=== PATIENT | female | born 1940 | race Caucasian/White ===

== ENCOUNTER 2016-06-09 07:28 | Outpatient (CLI) ==
[2016-02-20 14:44] VITALS: BMI 31.6
== END 2016-06-09 07:29 ==
LOC: AMBL 07:28
PROVIDERS: ATTEND Internal Medicine
DX: M25.562 Pain in left knee (principal); S00.81XA Abrasion of other part of head, initial encounter; R53.1 Weakness; R25.1 Tremor, unspecified; W19.XXXA Unspecified fall, initial encounter

== ENCOUNTER 2016-08-06 02:20 | Outpatient (CLI) ==
[2016-02-20 14:44] VITALS: BMI 31.6
== END 2016-08-06 02:21 | disposition home or self-care (01) ==
LOC: AMBL 02:20
PROVIDERS: ATTEND Internal Medicine Geriatric Medicine
DX: Z04.3 Encounter for examination and observation following other accident (principal); W19.XXXA Unspecified fall, initial encounter

== ENCOUNTER 2016-09-14 20:48 | Outpatient (CLI) | payer OTHER ==
[2016-02-20 14:44] VITALS: BMI 31.6
== END 2016-09-14 20:49 | disposition home or self-care (01) ==
LOC: AMBL 20:48
PROVIDERS: ATTEND Internal Medicine Geriatric Medicine
DX: M19.90 Unspecified osteoarthritis, unspecified site (principal); W06.XXXA Fall from bed, initial encounter; R29.6 Repeated falls

== ENCOUNTER → 2016-10-10 | Outpatient (CLI) | LOC: AMBL 13:32 | PROVIDERS: ATTEND Family Medicine | DX: Z04.3 Encounter for examination and observation following other accident (principal); W19.XXXA Unspecified fall, initial encounter ==

== ENCOUNTER 2016-10-15 14:29 | Emergency (ER) ==
[2016-10-15 14:30] VITALS: BMI 31.6
[2016-10-15 14:36] VITALS: BP 134/66; TEMP 98.9
--- NOTE | 2016-10-15 14:58 | ED.PDOC ---
General ED Provider: Dr. DAVID ALMAGUER JR Chief Complaint: Abdominal Pain Stated Complaint: ABD AND BACK PAIN STARTED AFTER DINNER.[End]10/14 98.9 58 20 96 % 134/66 9/10 ABD PAIN WITH NAUSEA. tums last night with some relief Time Seen by Physician: 14:55 Mode of Arrival: Walk-In Information Source: Patient, Family Exam Limitations: No limitations Primary Care Provider: SELENA CAMPBELL Nursing and Triage Documentation Reviewed and Agree: No Review of Systems - Review Of Systems Constitutional: Reports: Malaise Eyes: Reports: No symptoms Ears, Nose, Mouth, Throat: Reports: No symptoms Respiratory: Reports: No symptoms Cardiac: Reports: No symptoms GI: Reports: Abdominal pain (symptoms after rib sndwich wihtout BBQ sauce, abdomnal pain per daughter patient only notes right flank pain and tenderness) : Reports: No symptoms Musculoskeletal: Reports: Back pain Skin: Reports: No symptoms Neurological: Reports: No symptoms Endocrine: Reports: No symptoms Hematologic/Lymphatic: Reports: No symptoms All Other Systems: Other Past Medical History - Past Medical History Endocrine: Reports: DM 2, Hypothyroid Cardiovascular: Reports: Hypertension Respiratory: Reports: None Hematological: Reports: None Gastrointestinal: Reports: None Genitourinary: Reports: None Neuro/Psych: Reports: CVA (left sided weakness post cva), Seizure, Anxiety, Depression Musculoskeletal: Reports: None Cancer: Reports: None Last Menstrual Period: 1995 - Surgical History General Surgical History: Reports: Hysterectomy, Other (thyroid surgery ) - Family History Family History: Reports: Unknown - Social History Smoking Status: Never smoker Hx Substance Use: No Alcohol Screening: None Physical Exam - Physical Exam Appearance: Well-appearing Pain Distress: Moderate Eyes: TESSIE, EOMI, Conjunctiva clear ENT: Ears normal, Nose normal, Oropharynx normal Neck: Supple Respiratory: Airway patent, Breath sounds clear, Breath sounds equal, Respirations nonlabored Cardiovascular: Pulses normal, No rub, Irregular rhythm, Murmur GI/: Soft, Nontender, No masses, Bowel sounds normal, No Organomegaly Musculoskeletal: Limited ROM (left weakness) Skin: Warm, Dry, Normal color Neurological: Sensation intact, Motor intact, Reflexes intact, Cranial nerves intact, Alert, Oriented Psychiatric: Affect appropriate, Mood appropriate Critical Care Note - Critical Care Note Total Time (mins): 0 Course - Course Hematology/Chemistry: 10/15/16 15:15 10/15/16 15:15 Orders, Labs, Meds: Lab Review 10/15/16 10/15/16 15:15 15:25 WBC 7.63 RBC 5.13 Hgb 14.7 Hct 43.6 MCV 85.0 MCH 28.7 MCHC 33.7 RDW Coeff of Mikel 13.2 Plt Count 213 Immature Gran % (Auto) 0.1 Neut % (Auto) 63.6 Lymph % (Auto) 22.3 [place] % (Auto) 11.1 H Eos % (Auto) 2.2 Baso % (Auto) 0.7 Immature Gran # (Auto) 0.0 Neut # 4.9 Lymph # 1.7 [place] # 0.9 Eos # 0.2 Baso # 0.1 Sodium 140 Potassium 4.3 Chloride 103 Carbon Dioxide 25 Anion Gap 16.3 BUN 20 H Creatinine 0.82 Estimated GFR (MDRD) 68.00 BUN/Creatinine Ratio 24.39 Glucose 108 Calcium 9.4 Total Bilirubin 0.23 AST 26 ALT 39 Alkaline Phosphatase 65 Total Protein 6.8 Albumin 3.5 Globulin 3.3 Albumin/Globulin Ratio 1.06 Amylase 43 Lipase 19 Urine Color Yellow Urine Clarity Clear Urine pH 7.0 Ur Specific [place] 1.015 Urine Protein Negative Urine Glucose (UA) Negative Urine Ketones Negative Urine Blood Trace-intact Urine Nitrite Negative Urine Bilirubin Negative Urine Urobilinogen 0.2 Ur Leukocyte Esterase 1+ Urine Microscopic RBC 0-2 Urine Microscopic WBC 0-2 Ur Squamous Epith Cells 0-2 Ur Renal Epithelial Cell 0-2 Digoxin Pending H. pylori IgG Antibody Negative Orders Category Date Time Status ED IV/MEDIPORT/POWERPORT .ONCE EMERGENCY 10/15/16 14:57 Active AMYLASE Stat LAB 10/15/16 15:15 Results CBC W/ AUTO DIFF Stat LAB 10/15/16 15:15 Completed COMPREHENSIVE METABOLIC PANEL Stat LAB 10/15/16 15:15 Results DIGOXIN Stat LAB 10/15/16 15:15 Results H. PYLORI SCREEN Stat LAB 10/15/16 15:15 Completed LIPASE Stat LAB 10/15/16 15:15 Results PROCALCITONIN Stat LAB 10/15/16 15:15 Received URINALYSIS C & S IF INDICATED Stat LAB 10/15/16 15:25 Completed 0.9 % Sodium Chloride [Saline Flush] MEDS 10/15/16 14:57 Ordered 1 syr IVF PRN PRN Hydrocodone Bit/Acetaminophen [[place] 5-325] MEDS 10/15/16 15:13 Discontinued 1 tab PO ONCE STA CT ABDOMEN/PELVIS WO CONTRAST Stat RADS 10/15/16 14:57 Completed Medications Generic Name Dose Route Start Last Admin Trade Name Mikal PRN Reason Stop Dose Admin Sodium Chloride 1 syr 10/15/16 14:57 Saline Flush IVF PRN PRN To flush IV Discontinued Medications Generic Name Dose Route Start Last Admin Trade Name Frejudy PRN Reason Stop Dose Admin Acetaminophen/Hydrocodone Bitart 1 tab 10/15/16 15:13 10/15/16 15:48 [place] 5-325 PO 10/15/16 15:14 1 tab ONCE STA Administration Vital Signs: Temp Pulse Resp BP Pulse Ox 10/15/16 14:30 98.9 F 58 L 20 134/66 96 Departure - Departure Time of Disposition: 15:49 Disposition: HOME SELF-CARE Discharge Problem: Abdominal pain Instructions: Abdominal Pain (ED) Condition: Good Pt referred to PMD for follow-up: Yes Additional Instructions: Tylenol twice a day for discomfort may repeat up to four times a day total as needed follow up with PMD this week discuss abdominal pain and back pain consider referral for new slight T12 fracture consider further treatment of constipation Miralax 1/2 capful in large glass of juice daily for four days anticipate improvement of pain with relief of constipation no evidence of cholecystitis possible urine infection- recheck culture in two days agree with physical therapy for functional improvement Prescriptions: Acetaminophen [Tylenol] 500 mg PO Q6H PRN #30 tablet PRN Reason: Abdominal Pain Polyethylene Glycol 3350 [Miralax] 9 gm PO DAILY PRN #20 powd.pack PRN Reason: Constipation Allergies/Adverse Reactions: Allergies Iodine and Iodide Containing Produc Adverse Reaction (Verified 02/20/16 14:56) Home Medications: Ambulatory Orders Acetaminophen [Mapap] 325 mg PO Q4HR PRN 03/11/15 Aspirin [Aspirin Chewable] 81 mg PO DAILYWM 03/11/15 Atorvastatin Calcium 40 mg PO BEDTIME 03/11/15 Calcium Carbonate/Vitamin D3 [Calcium 500 + D Tablet] 1 each PO BID 03/11/15 Levetiracetam [Keppra] 1,000 mg PO BID 03/11/15 Lisinopril [Zestril] 2.5 mg PO DAILY 03/11/15 Metoprolol Succinate [Toprol Xl] 25 mg PO DAILY 03/11/15 Omeprazole [Prilosec] 20 mg PO QDAC 03/11/15 Polyethylene Glycol 3350 [Miralax] 17 gm PO DAILY 03/11/15 Potassium Chloride [K-Dur] 20 meq PO BID 03/11/15 Primidone [Mysoline] 50 mg PO TID 03/11/15 Propafenone HCl [Rythmol] 150 mg PO TID 03/11/15 Vit C/Vit E/Lutein/Min/[place]-3 [Ocuvite Softgel] 1 each PO DAILY 03/11/15 Bisacodyl [Dulcolax] 10 mg RC ONCE PRN 02/20/16 Digoxin [Lanoxin] 125 mcg PO DAILY 02/20/16 Estrogens, Conjugated [Premarin Vaginal Cream] 1 applic VG DAILY PRN 02/20/16 Acetaminophen [Tylenol] 500 mg PO Q6H PRN #30 tablet 10/15/16 Polyethylene Glycol 3350 [Miralax] 9 gm PO DAILY PRN #20 powd.pack 10/15/16
[2016-10-15] MEDS ORDERED: NORCO 5-325 PO STA (15:13)
[2016-10-15 15:24] LABS: BASOPHILS # (AUTO) 0.1 K/uL (0-0.2); BASOPHILS % (AUTO) 0.7 % (0.0-3.0); EOSINOPHILS # (AUTO) 0.2 K/ul (0.0-0.7); EOSINOPHILS % (AUTO) 2.2 % (0.0-7.0); HEMATOCRIT 43.6 % (37.0-47.0); HEMOGLOBIN 14.7 g/dl (12.0-16.0); IMMATURE GRANULOCYTE % (AUTO) 0.1 % (0.0-5.0); LYMPHOCYTES # (AUTO) 1.7 K/uL (0.60-3.4); LYMPHOCYTES % (AUTO) 22.3 (10.0-50.0); MEAN CORPUSCULAR HEMOGLOBIN 28.7 pg (27.0-31.0); MEAN CORPUSCULAR HGB CONC 33.7 (31.8-35.4); MONOCYTES # (AUTO) 0.9 K/uL (0.4-2.0); MONOCYTES % (AUTO) 11.1 (0-10); NEUTROPHILS # (AUTO) 4.9 K/ul (2.0-6.9); NEUTROPHILS % (AUTO) 63.6; PLATELET COUNT 213 10^3/uL (140-440); RED BLOOD COUNT 5.13 10^6/ul (4.20-5.40); WHITE BLOOD COUNT 7.63 K/ul (4.6-10.2)
[2016-10-15 15:34] LABS: BILIRUBIN,URINE Negative (NEGATIVE); KETONES,URINE Negative (NEGATIVE); LEUKOCYTE ESTERASE ,URINE 1+ (NEGATIVE); NITRITE,URINE Negative (NEGATIVE); PROTEIN,URINE Negative (NEGATIVE); URINE, BLOOD Trace-intact (NEGATIVE)
--- NOTE | 2016-10-15 15:34 | CT ---
EXAM: CT abdomen and pelvis without contrast. HISTORY: Abdominal pain. TECHNIQUE: Multi-slice transaxial helical CT. Coronal and sagittal reformatons were performed. COMPARISON: CT chest 02/20/2016. CT abdomen 09/09/2007. FINDINGS: Coronary artery calcifications are present. The heart is on the upper limits of normal in size. Mas s-like opacity in the left lung base does not appear significantly changed since 02/20/2016 which ap pears linear and partly pleural-based measuring 4.9 x 1.8 cm. The otherwise the lung bases appear c lear. The old inferior left lower rib fractures are not significantly changed. Evaluation of the solid organs is limited without IV contrast. The spleen is normal in size. The p ancreas appears significantly fatty infiltrated. No intrahepatic biliary ductal dilation is seen. Multiple tiny bilateral nonobstructing renal calculi are present which measure up to 4 mm in the rig ht kidney. Multiple left-sided renal exophytic hypodense lesions are seen which appears slightly la rger than previously seen in 2007. Many of these structures measure a simple water density. Some o f the densities measure higher than simple water. Numerous bilateral other tiny hypodense and hyper dense renal structures are present which are too small to actually characterize. Bilateral adrenal g lands appear unremarkable. The gallbladder appears unremarkable per The bowel is not dilated. The urinary bladder appears unremarkable. The uterus has been removed. P rominent stool is seen throughout the colon. The appendix is normal in size. Calcified plaques are present within the abdominal aorta and its major branch vessels. No evidence of retroperitoneal ad enopathy is seen. Bilateral hip joint space narrowing is present. There is moderate to advanced mu ltilevel degenerative changes of the lumbar spine. Mild anterior compression fracture of T12 is pre sent with cortical irregularity and sclerosis in the superior endplate. IMPRESSION: 1. No acute abdominal findings. 2. Left basilar pleural based mass-like opacity, not significantly changed since 2015. Differentia l includes pleural thickening or round atelectasis. Recommend follow-up CT of the chest in 6 months to exclude enlarging mass. Adjacent left lower posterior rib fractures are present. 3. Atherosclerosis, including coronary disease. 4. Bilateral nonobstructing renal calculi. No evidence of hydronephrosis. 5. Multiple left-sided simple appearing renal cysts. Some of the renal masses measure above 20 HU which are indeterminate. Multiple additional sub-centimeter hypo and hyperdensities are seen in the bilateral kidneys too small to accurately characterize. Recommend non-emergent CT or MRI of the ab domen before and after administration of IV contrast for further evaluation. 6. Prominent stool. Correlate with constipation. 7. Hysterectomy. 8. Mild anterior compression fracture of T12, which appears new since 02/20/2016.
[2016-10-15 15:39] LABS: H. PYLORI ANTIBODY NEGATIVE (NEGATIVE); H.PYLORI INTERNAL QC INTERNAL QC VALID
[2016-10-15 15:39] LABS: ADD URINE MICROSCOPIC YES
[2016-10-15 15:45] LABS: ALANINE AMINOTRANSFERASE 39 U/L (12-78); ALBUMIN 3.5 g/dL (3.4-5.0); ALBUMIN/GLOBULIN RATIO 1.06; ALKALINE PHOSPHATASE 65 U/L (53-141); AMYLASE 43 U/L (25-115); ANION GAP 16.3; ASPARTATE AMINO TRANSFERASE 26 U/L (15-37); BILIRUBIN,TOTAL 0.23 mg/dL (0.00-1.20); BLOOD UREA NITROGEN 20 mg/dL (7-18); BUN/CREATININE RATIO 24.39; CALCIUM 9.4 mg/dL (8.2-10.2); CARBON DIOXIDE 25 mmol/L (23-31); CHLORIDE 103 mmol/L (98-107); CREATININE 0.82 mg/dL (0.60-1.30); GLUCOSE 108 mg/dL (82-115); LIPASE 19 U/L (8-78); POTASSIUM 4.3 mmol/L (3.5-5.10); SODIUM 140 mmol/L (136-145); TOTAL PROTEIN 6.8 g/dL (5.8-8.1)
[2016-10-15 16:04] LABS: DIGOXIN < 0.30 ng/mL (1.00-2.00)
== END 2016-10-15 16:18 | disposition home or self-care (01) ==
LOC: ED 14:29
DX: R10.9 Unspecified abdominal pain (principal); R11.0 Nausea; M54.9 Dorsalgia, unspecified; K59.00 Constipation, unspecified; S22.080A Wedge compression fracture of T11-T12 vertebra, initial encounter for closed fracture; E11.9 Type 2 diabetes mellitus without complications; E03.9 Hypothyroidism, unspecified; I10 Essential (primary) hypertension; Z79.899 Other long term (current) drug therapy; Z86.73 Personal history of transient ischemic attack (TIA), and cerebral infarction without residual deficits
CPT/HCPCS: 36415; 80053; 80162; 81001; 82150; 83690; 84145; 85025; 86677; 87086; 99283

== ENCOUNTER 2016-10-29 13:54 | Emergency (ER) ==
[2016-10-29 14:13] VITALS: BP 169/79; TEMP 98; BMI 29.6
--- NOTE | 2016-10-29 14:32 | ED.PDOC ---
General ED Provider: Dr. DAVID ALMAGUER JR Chief Complaint: Abdominal Pain Stated Complaint: RUQ ABDOMINAL PAIN RADIATING TO BACK, PAIN IS ON THE RIGHT SIDE, FREQ. URINATION BUT IS AFRAID OF VOIDING ON SELF, WHEN WIPE AFTER BOWEL MOVEMENT THE TISSUE WAS RED BUT HAS HEMMORIODS OFF AND ON FOR YEARS AND NOW FOR 2 WEEKS 98.0 58 18 96% 169/79 07/17 [End]. : 10/15/16 :T12 fracture; constipation;Miralax 1/2; no evidence of cholecystitis;possible urine infection; agree with physical therapy (UA showed no growth) Time Seen by Physician: 14:30 Mode of Arrival: Wheelchair Information Source: Patient, Family Exam Limitations: No limitations Primary Care Provider: SELENA CAMPBELL Nursing and Triage Documentation Reviewed and Agree: No Review of Systems - Review Of Systems Constitutional: Reports: Malaise Eyes: Reports: No symptoms Ears, Nose, Mouth, Throat: Reports: No symptoms Respiratory: Reports: No symptoms Cardiac: Reports: No symptoms GI: Reports: Abdominal pain (RUQ), Nausea (briefly at lunchtime), Other (red tissue after BM(hx hemorrhoids)) : Reports: No symptoms Musculoskeletal: Reports: No symptoms Skin: Reports: No symptoms Neurological: Reports: No symptoms Endocrine: Reports: No symptoms Hematologic/Lymphatic: Reports: No symptoms All Other Systems: Other Past Medical History - Past Medical History Endocrine: Reports: DM 2, Hypothyroid Cardiovascular: Reports: Hypertension Respiratory: Reports: None Hematological: Reports: None Gastrointestinal: Reports: None Genitourinary: Reports: None Neuro/Psych: Reports: CVA (left sided weakness post cva), Seizure, Anxiety, Depression Musculoskeletal: Reports: None Cancer: Reports: None Last Menstrual Period: NA - Surgical History General Surgical History: Reports: Hysterectomy, Other (thyroid surgery ) - Family History Family History: Reports: Unknown - Social History Smoking Status: Never smoker Hx Substance Use: No Alcohol Screening: None - Immunizations Tetanus Shot up to Date: No Physical Exam - Physical Exam Appearance: Well-appearing Pain Distress: Moderate Eyes: TESSIE (left lid closed), EOMI, Conjunctiva clear ENT: Ears normal, Nose normal, Oropharynx normal Neck: Supple Respiratory: Airway patent, Breath sounds clear, Breath sounds equal, Respirations nonlabored Cardiovascular: RRR, Pulses normal, No rub, No murmur GI/: Soft, No masses, Bowel sounds normal, No Organomegaly, Tender (RUQ nonfocal tender no mass note told gallbladder testing was normal-sister states she had negative testing on her gall bladder) Musculoskeletal: Limited ROM (left side post CVA) Skin: Warm, Dry, Normal color Neurological: Sensation intact, Motor intact, Reflexes intact, Cranial nerves intact, Alert, Oriented Psychiatric: Affect appropriate, Mood appropriate Critical Care Note - Critical Care Note Total Time (mins): 0 Course - Course Hematology/Chemistry: 10/29/16 14:44 10/29/16 14:44 Orders, Labs, Meds: Lab Review 10/29/16 10/29/16 14:15 14:44 WBC 7.91 RBC 5.12 Hgb 14.7 Hct 43.5 MCV 85.0 MCH 28.7 MCHC 33.8 RDW Coeff of Mikel 13.2 Plt Count 240 Immature Gran % (Auto) 0.3 Neut % (Auto) 64.8 Lymph % (Auto) 22.3 [place] % (Auto) 10.0 Eos % (Auto) 1.8 Baso % (Auto) 0.8 Immature Gran # (Auto) 0.0 Neut # 5.1 Lymph # 1.8 [place] # 0.8 Eos # 0.1 Baso # 0.1 Sodium 140 Potassium 4.3 Chloride 104 Carbon Dioxide 23 Anion Gap 17.3 BUN 17 Creatinine 0.83 Estimated GFR (MDRD) 67.00 BUN/Creatinine Ratio 20.48 Glucose 109 Calcium 9.2 Total Bilirubin 0.27 AST 23 ALT 35 Alkaline Phosphatase 97 Total Protein 6.8 Albumin 3.5 Globulin 3.3 Albumin/Globulin Ratio 1.06 Amylase 43 Lipase 21 Urine Color Yellow Urine Clarity Clear Urine pH 7.0 Ur Specific [place] 1.020 Urine Protein Negative Urine Glucose (UA) Negative Urine Ketones Negative Urine Blood Negative Urine Nitrite Negative Urine Bilirubin Negative Urine Urobilinogen 0.2 Ur Leukocyte Esterase 1+ Ur Squamous Epith Cells 2-5 H. pylori IgG Antibody Negative Orders Category Date Time Status AMYLASE Stat LAB 10/29/16 14:44 Completed CBC W/ AUTO DIFF Stat LAB 10/29/16 14:44 Completed COMPREHENSIVE METABOLIC PANEL Stat LAB 10/29/16 14:44 Completed H. PYLORI SCREEN Stat LAB 10/29/16 14:44 Completed LIPASE Stat LAB 10/29/16 14:44 Completed URINALYSIS C & S IF INDICATED Stat LAB 10/29/16 14:15 Completed Hydrocodone Bit/Acetaminophen [[place] 5-325] MEDS 10/29/16 14:53 Discontinued 1 tab PO ONCE STA Medications Discontinued Medications Generic Name Dose Route Start Last Admin Trade Name Freq PRN Reason Stop Dose Admin Acetaminophen/Hydrocodone Bitart 1 tab 10/29/16 14:53 10/29/16 15:01 [place] 5-325 PO 10/29/16 14:54 1 tab ONCE STA Administration Vital Signs: Temp Pulse Resp BP Pulse Ox 10/29/16 13:55 98 F 58 L 18 169/79 H 96 Departure - Departure Time of Disposition: 15:22 Disposition: HOME SELF-CARE Discharge Problem: Abdominal pain Instructions: Abdominal Pain (ED) Condition: Good Pt referred to PMD for follow-up: Yes Additional Instructions: Follow up with PMD recurrent abdominal pain may have occasional [place] for pain recheck PMD one week check temperature daily return if over 101.0 Prescriptions: Hydrocodone Bit/Acetaminophen [[place] 5-325] 1 - 2 tab PO Q6HR PRN #12 tablet PRN Reason: pain Allergies/Adverse Reactions: Allergies Iodine and Iodide Containing Produc Adverse Reaction (Verified 02/20/16 14:56) Home Medications: Ambulatory Orders Acetaminophen [Mapap] 325 mg PO Q4HR PRN 03/11/15 Aspirin [Aspirin Chewable] 81 mg PO DAILYWM 03/11/15 Atorvastatin Calcium 40 mg PO BEDTIME 03/11/15 Calcium Carbonate/Vitamin D3 [Calcium 500 + D Tablet] 1 each PO BID 03/11/15 Levetiracetam [Keppra] 1,000 mg PO BID 03/11/15 Lisinopril [Zestril] 2.5 mg PO DAILY 03/11/15 Metoprolol Succinate [Toprol Xl] 25 mg PO DAILY 03/11/15 Omeprazole [Prilosec] 20 mg PO QDAC 03/11/15 Polyethylene Glycol 3350 [Miralax] 17 gm PO DAILY 03/11/15 Potassium Chloride [K-Dur] 20 meq PO BID 03/11/15 Primidone [Mysoline] 100 mg PO TID 03/11/15 Propafenone HCl [Rythmol] 150 mg PO TID 03/11/15 Vit C/Vit E/Lutein/Min/[place]-3 [Ocuvite Softgel] 1 each PO DAILY 03/11/15 Digoxin [Lanoxin] 62.5 mcg PO DAILY 02/20/16 Estrogens, Conjugated [Premarin Vaginal Cream] 1 applic VG DAILY PRN 02/20/16 Hydrocodone Bit/Acetaminophen [[place] 5-325] 1 - 2 tab PO Q6HR PRN #12 tablet Multivitamin 1 cap PO DAILY 10/29/16
[2016-10-29] MEDS ORDERED: NORCO 5-325 PO STA (14:53)
[2016-10-29 14:56] LABS: BASOPHILS # (AUTO) 0.1 K/uL (0-0.2); BASOPHILS % (AUTO) 0.8 % (0.0-3.0); EOSINOPHILS # (AUTO) 0.1 K/ul (0.0-0.7); EOSINOPHILS % (AUTO) 1.8 % (0.0-7.0); HEMATOCRIT 43.5 % (37.0-47.0); HEMOGLOBIN 14.7 g/dl (12.0-16.0); IMMATURE GRANULOCYTE % (AUTO) 0.3 % (0.0-5.0); LYMPHOCYTES # (AUTO) 1.8 K/uL (0.60-3.4); LYMPHOCYTES % (AUTO) 22.3 (10.0-50.0); MEAN CORPUSCULAR HEMOGLOBIN 28.7 pg (27.0-31.0); MEAN CORPUSCULAR HGB CONC 33.8 (31.8-35.4); MONOCYTES # (AUTO) 0.8 K/uL (0.4-2.0); NEUTROPHILS # (AUTO) 5.1 K/ul (2.0-6.9); NEUTROPHILS % (AUTO) 64.8; PLATELET COUNT 240 10^3/uL (140-440); RED BLOOD COUNT 5.12 10^6/ul (4.20-5.40); WHITE BLOOD COUNT 7.91 K/ul (4.6-10.2)
[2016-10-29 14:58] LABS: BILIRUBIN,URINE Negative (NEGATIVE); KETONES,URINE Negative (NEGATIVE); LEUKOCYTE ESTERASE ,URINE 1+ (NEGATIVE); NITRITE,URINE Negative (NEGATIVE); PROTEIN,URINE Negative (NEGATIVE); URINE, BLOOD Negative (NEGATIVE)
[2016-10-29 15:02] LABS: ADD URINE MICROSCOPIC YES
[2016-10-29 15:09] LABS: H. PYLORI ANTIBODY NEGATIVE (NEGATIVE); H.PYLORI INTERNAL QC INTERNAL QC VALID
[2016-10-29 15:14] LABS: ALBUMIN 3.5 g/dL (3.4-5.0); ALBUMIN/GLOBULIN RATIO 1.06; ANION GAP 17.3; BILIRUBIN,TOTAL 0.27 mg/dL (0.00-1.20); BUN/CREATININE RATIO 20.48; CALCIUM 9.2 mg/dL (8.2-10.2); CREATININE 0.83 mg/dL (0.60-1.30); POTASSIUM 4.3 mmol/L (3.5-5.10); TOTAL PROTEIN 6.8 g/dL (5.8-8.1)
== END 2016-10-29 15:48 | disposition home or self-care (01) ==
LOC: ED 13:54
DX: R10.11 Right upper quadrant pain (principal); R35.0 Frequency of micturition; E11.9 Type 2 diabetes mellitus without complications; E03.9 Hypothyroidism, unspecified; I10 Essential (primary) hypertension; Z79.899 Other long term (current) drug therapy; Z86.73 Personal history of transient ischemic attack (TIA), and cerebral infarction without residual deficits
CPT/HCPCS: 36415; 80053; 81001; 82150; 83690; 85025; 86677; 99283

== ENCOUNTER 2017-07-11 10:02 | Outpatient (POV) ==
[2016-10-30 09:34] VITALS: BMI 29.6
== END 2017-07-11 17:00 ==
LOC: OUTPT 10:02
PROVIDERS: ATTEND Otolaryngology
DX: H93.13 Tinnitus, bilateral (principal)
CPT/HCPCS: 92557; 92567

== ENCOUNTER 2017-07-27 11:11 | Outpatient (CLI) ==
[2016-10-30 09:34] VITALS: BMI 29.6
--- NOTE | 2017-07-27 13:24 | DI ---
EXAM: Two views of the left knee HISTORY: Left knee pain. COMPARISON: Left knee x-rays 02/20/2016 FINDINGS: Medial and lateral compartments of the left knee are intact with mild medial compartmental narrowing. The patella demonstrates patellar osteophytes. There is no lytic or blastic lesion. The soft tissues are unremarkable. IMPRESSION: Mild degenerative disease of the left knee with no displaced fracture identified.
== END 2017-07-27 11:12 | disposition home or self-care (01) ==
LOC: RAD 11:11
PROVIDERS: ATTEND Family Medicine
DX: M25.562 Pain in left knee (principal); W19.XXXA Unspecified fall, initial encounter

== ENCOUNTER 2017-08-13 06:40 | Inpatient (IN) | payer OTHER ==
[2017-08-13] MEDS ORDERED: LIDOCAINE HCL 1% SDV ONE (06:43)
--- NOTE | 2017-08-13 06:52 | ED.PDOC ---
General Stated Complaint: i fell at [facility] Time Seen by Physician: 06:48 Mode of Arrival: Ambulance Information Source: Patient, EMT Exam Limitations: No limitations Nursing and Triage Documentation Reviewed and Agree: Yes Reviewed sepsis parameters & appropriate labs ordered?: Yes System Inflammatory Response Syndrome: Not Applicable <NESTOR PORTER - Last Filed: 08/13/17 07:04> <CHARISMA GRAFF - Last Filed: 08/13/17 10:01> ED Provider: Dr. CHARISMA GRAFF Chief Complaint: Fall Primary Care Provider: SELENA CAMPBELL Sepsis Protocol: For patient's 13 years and over: Temp is 96.8 and below OR 101 and greater Pulse >90 BPM Resp >20/minute Acutely Altered Mental Status Are patient's symptoms suggestive of a new infection, such as: -Pneumonia -Skin, Soft Tissue -Endocarditis -UTI -Bone, Joint Infection -Implantable Device -Acute Abdominal Infection -Wound Infection -Meningitis -Blood Stream Catheter Infection -Unknown Trauma/Injury Complaint Exam - Head Injury Complaint/Exam Location of Pain: Reports: Scalp Mechanism of Injury: Reports: Trauma Onset/Duration: one hour Symptoms Are: Still present Initial Severity: Mild Current Severity: Mild Character: Reports: Dull Aggravating: Reports: None Alleviating: Reports: None Associated Signs and Symptoms: Denies: Confusion, Memory loss, Seizure, Epistaxis, Dental malocclusion, Neck pain, Nausea, Vomiting Loss of Consciousness: None SDH Risk Factors: Present: Elderly, Recent trauma, Anticoagulant use Cervical Spine Injury Risk Factors: Present: None Immobilization Removed Post Exam: No Head Injury Findings: Present: Normal findings Glascow Coma Scale (see protocol): 15 Focal Weakness: Present: None Focal Sensory Loss: Present: None Gait: Normal Gag Reflex Present: Yes Finger to Nose: Normal Nexus Low Risk Criteria: No Altered LOC, No focal neuro deficit Differential Diagnoses: Trauma <NESTOR PORTER - Last Filed: 08/13/17 07:04> Review of Systems - Review Of Systems Constitutional: Reports: No symptoms Eyes: Reports: No symptoms Ears, Nose, Mouth, Throat: Reports: No symptoms Respiratory: Reports: No symptoms Cardiac: Reports: No symptoms GI: Reports: No symptoms : Reports: No symptoms Musculoskeletal: Reports: No symptoms Skin: Reports: No symptoms Neurological: Reports: Headache Endocrine: Reports: No symptoms Hematologic/Lymphatic: Reports: No symptoms All Other Systems: Reviewed and Negative <NESTOR PORTER Last Filed: 08/13/17 07:04> Past Medical History - Past Medical History Previously Healthy: No Endocrine: Reports: DM 2, Hypothyroid Cardiovascular: Reports: Hypertension Respiratory: Reports: None Hematological: Reports: None Gastrointestinal: Reports: None Genitourinary: Reports: None Neuro/Psych: Reports: CVA, Anxiety, Depression, Seizure Musculoskeletal: Reports: None Cancer: Reports: None - Surgical History General Surgical History: Reports: Hysterectomy, Other (thyroid surgery ) - Family History Family History: Reports: Unknown - Social History Smoking Status: Never smoker Hx Substance Use: No Alcohol Screening: None <NESTOR PORTER Last Filed: 08/13/17 07:04> Physical Exam - Physical Exam Appearance: Well-appearing Eyes: TESSIE ENT: Ears normal, Nose normal, Oropharynx normal Neck: Supple Respiratory: Airway patent, Breath sounds clear, Breath sounds equal, Respirations nonlabored Cardiovascular: RRR, Pulses normal, No rub, No murmur GI/: Soft, Nontender, No masses, Bowel sounds normal, No Organomegaly Musculoskeletal: Normal strength, ROM intact, No edema, No calf tenderness Skin: Warm, Dry, Normal color Neurological: Sensation intact, Motor intact, Reflexes intact, Cranial nerves intact, Alert, Oriented Psychiatric: Affect appropriate, Mood appropriate <NESTOR PORTER Filed: 08/13/17 07:04> Interpretation - Radiology Interpretation Radiology Interpretation By: Radiologist Radiology Results: Negative Exam Interpreted: CT Scan <NESTOR PORTER Last Filed: 08/13/17 07:04> - Radiology Interpretation Radiology Interpretation By: Radiologist Radiology Results: Negative Exam Interpreted: CT Scan - EKG Interpretation Rate: Tachy (ATRIAL FIBRILLATION WITH RVR ) Time of EKG #2: 10:00 Rate: Tachy (AFIB CONTROLLED RATE ) Ectopy: None [place]: NL EKG Comparison: Other (AFIB ON SECOND EKG IS CONTROLLED NO ACUTE CHANGES NOTED) <CHARISMA GRAFF Last Filed: 08/13/17 10:01> Procedures - Laceration/Wound Repair No standard instances Wound Description: Linear Wound Length (cm): 1.5 Wound Explored: Clean Wound Irrigated: No Wound Prep: Hibiclens Wound Repaired With: [place] Number of [place]: 4 Layer Closure?: No Sterile Dressing Applied?: Yes Splint Applied?: No Sling Applied?: No <NESTOR PORTER - Last Filed: 08/13/17 07:04> Re-Evaluation - Re-Evaluation Time of Re-Evaluation: 07:00 Status: Unchanged Vital Signs Stable: Yes Pain Level: 0 Appearance: NAD Lungs: Clear Skin: Warm and Dry CV: Other (afib RVR) - Re-Evaluation Time of Re-Evaluation: 09:59 Status: Improved Vital Signs Stable: Yes Pain Level: 0 Appearance: NAD Skin: Warm and Dry Neuro: Alert and Oriented X3 CV: Other (AFIB RVR) <CHARISMA GRAFF - Last Filed: 08/13/17 10:01> Physician Notification - Case Discussed Physician Notified: dr graff Time of Notification: 07:05 <NESTOR PORTER - Last Filed: 08/13/17 07:04> - Case Discussed Physician Notified: pmd Time of Notification: 09:59 Admit To: Inpatient <CHARISMA GRAFF - Last Filed: 08/13/17 10:01> Critical Care Note - Critical Care Note Total Time (mins): 0 <NESTOR PORTER - Last Filed: 08/13/17 07:04> Course - Course Hematology/Chemistry: 08/13/17 07:10 08/13/17 07:10 <CHARISMA GRAFF - Last Filed: 08/13/17 10:01> - Course Orders, Labs, Meds: Lab Review 08/13/17 08/13/17 08/13/17 07:10 07:10 07:10 WBC 8.99 RBC 5.65 H Hgb 16.2 H Hct 47.8 H MCV 84.6 MCH 28.7 MCHC 33.9 RDW Coeff of Mikel 12.7 Plt Count 238 Immature Gran % (Auto) 0.3 Neut % (Auto) 63.9 Lymph % (Auto) 25.6 [place] % (Auto) 6.7 Eos % (Auto) 2.7 Baso % (Auto) 0.8 Immature Gran # (Auto) 0.0 Neut # (Auto) 5.8 Lymph # (Auto) 2.3 [place] # (Auto) 0.6 Eos # (Auto) 0.2 Baso # (Auto) 0.1 Sodium 140 Potassium 4.2 Chloride 103 Carbon Dioxide 23 Anion Gap 18.2 BUN 17 Creatinine 0.89 Estimated GFR (MDRD) 62.00 BUN/Creatinine Ratio 19.10 Glucose 129 H Calcium 9.7 TSH 1.399 Free T4 1.13 Digoxin < 0.30 L Orders Category Date Time Status EKG-(ED ONLY) Stat CARDIO 08/13/17 07:02 Completed EKG-(ED ONLY) Stat CARDIO 08/13/17 07:20 Completed EKG-(IP & OP ONLY) DAILY CARDIO 08/14/17 06:00 Ordered EKG-(IP & OP ONLY) DAILY CARDIO 08/15/17 06:00 Ordered EKG-(IP & OP ONLY) DAILY CARDIO 08/16/17 06:00 Ordered ACTIVITY .Complete BR CARE 08/13/17 09:56 Ordered BLOOD GLUCOSE MONITORING ACCUCHECK Q6H CARE 08/13/17 09:56 Ordered Neuro Check [NEUROLOGICAL CHECKS] Q4HR CARE 08/13/17 09:58 Ordered VITAL SIGNS Q4HR CARE 08/13/17 09:56 Ordered REGULAR DIET DIETARY 08/13/17 Lunch Ordered Financial Aid Counselor [ED SCREEN ROLLER APPLIED] .ONCE EMERGENCY 08/13/17 07:03 Active IV [ED IV/MEDIPORT/POWERPORT] .ONCE EMERGENCY 08/13/17 07:02 Active BASIC METABOLIC PANEL Stat LAB 08/13/17 07:10 Completed CBC W/ AUTO DIFF DAILY@0600 LAB 08/14/17 06:00 Ordered CBC W/ AUTO DIFF DAILY@0600 LAB 08/15/17 06:00 Ordered CBC W/ AUTO DIFF Stat LAB 08/13/17 07:10 Completed COMPREHENSIVE METABOLIC PANEL DAILY@0600 LAB 08/14/17 06:00 Ordered COMPREHENSIVE METABOLIC PANEL DAILY@0600 LAB 08/15/17 06:00 Ordered CREATINE KINASE Q8H LAB 08/13/17 16:00 Ordered CREATINE KINASE Q8H LAB 08/14/17 00:00 Ordered DIGOXIN Stat LAB 08/13/17 07:10 Completed FREE T4 (FREE THYROXINE) Stat LAB 08/13/17 07:10 Completed TROPONIN I Q8H LAB 08/13/17 16:00 Ordered TROPONIN I Q8H LAB 08/14/17 00:00 Ordered TSH [THYROID STIMULATING HORMONE] Stat LAB 08/13/17 07:10 Completed UA [URINALYSIS C & S IF INDICATED] Stat LAB 08/13/17 07:21 Uncollected 0.9 % Sodium Chloride [Saline Flush] MEDS 08/13/17 07:02 Active 1 syr IVF PRN PRN 0.9 % Sodium Chloride [Sodium Chloride] 100 ml MEDS 08/13/17 07:30 Active Diltiazem HCl Inj [Cardizem Inj] 125 mg IV 5 mg/hr Amiodarone HCl Inj [Cordarone] MEDS 08/13/17 07:13 Discontinued 150 mg .ROUTE .STK-MED ONE Aspirin [Aspirin Chewable] MEDS 08/14/17 08:00 Ordered 81 mg PO DAILYWM Atorvastatin Calcium [Atorvastatin Calcium] MEDS 08/13/17 21:00 Ordered 40 mg PO BEDTIME Calcium Carbonate/Vitamin D3 [Calcium 600 + Vit D 400 MEDS 08/13/17 21:00 Ordered Tablet] 1 each PO BID Digoxin Inj [Lanoxin] MEDS 08/13/17 07:03 Discontinued 250 mcg IVP ONCE STA Digoxin [Lanoxin] MEDS 08/14/17 09:00 Ordered 62.5 mcg PO DAILY Diltiazem HCl Inj [Cardizem Inj] MEDS 08/13/17 07:18 Discontinued 20 mg IVP ONCE STA Diltiazem HCl Inj [Cardizem Inj] MEDS 08/13/17 07:38 Discontinued 25 mg IVP ONCE STA Diltiazem HCl [Cardizem Inj] MEDS 08/13/17 07:17 Discontinued 25 mg .ROUTE .STK-MED ONE Levetiracetam [Levetiracetam] MEDS 08/13/17 21:00 Ordered 1,000 mg PO BID Lidocaine HCl/Pf [Lidocaine HCl 1% Sdv] MEDS 08/13/17 06:43 Discontinued 5 ml .ROUTE .STK-MED ONE Lisinopril [Zestril] MEDS 08/14/17 09:00 Ordered 2.5 mg PO DAILY Magnesium [Magnesium] MEDS 08/14/17 09:00 Ordered 200 mg PO DAILY Metoprolol Succinate [Toprol Xl] MEDS 08/14/17 09:00 Ordered 12.5 mg PO DAILY Omeprazole [Prilosec] MEDS 08/14/17 06:30 Ordered 20 mg PO QDAC Potassium Chloride [K-Dur] MEDS 08/13/17 21:00 Ordered 20 meq PO BID Primidone [Mysoline] MEDS 08/13/17 15:00 Ordered 100 mg PO TID Propafenone HCl [Rythmol Sr] MEDS 08/13/17 15:00 Ordered [address] CERVICAL SPINE W/O CONTRAST Routine RADS 08/13/17 08:[address] HEAD W/O CONTRAST Routine RADS 08/13/17 08:12 Completed Medications Generic Name Dose Route Start Last Admin Trade Name Freq PRN Reason Stop Dose Admin Aspirin 81 mg 08/14/17 08:00 Aspirin Chewable PO DAILYWM FLAQUITA Digoxin 62.5 mcg 08/14/17 09:00 Lanoxin PO DAILY FLAQUITA Diltiazem HCl 125 mg/ Sodium 125 mls @ 5 mls/hr 08/13/17 07:30 Chloride IV .Q24H [facility] Protocol 5 MG/HR Metoprolol Succinate 12.5 mg 08/14/17 09:00 Toprol Xl PO DAILY FLAQUITA Non-Formulary Medication 40 mg 08/13/17 21:00 Atorvastatin Calcium [Atorvastatin Calcium] PO BEDTIME FLAQUITA Non-Formulary Medication 1 each 08/13/17 21:00 Calcium Carbonate/Vitamin D3 [Calcium 600 + Vit D 400 Tablet] PO BID FLAQUITA Non-Formulary Medication 1,000 mg 08/13/17 21:00 Levetiracetam [Levetiracetam] PO BID FLAQUITA Non-Formulary Medication 200 mg 08/14/17 09:00 Magnesium [Magnesium] PO DAILY FLAQUITA Non-Formulary Medication 100 mg 08/13/17 15:00 Primidone [Mysoline] PO TID FLAQUITA Non-Formulary Medication 150 mg 08/13/17 15:00 Propafenone Hcl [Rythmol Sr] PO TID FLAQUITA Non-Formulary Medication 2.5 mg 08/14/17 09:00 Lisinopril [Zestril] PO DAILY [facility] Omeprazole 20 mg 08/14/17 06:30 Prilosec PO QDAC [facility] Potassium Chloride 20 meq 08/13/17 21:00 K-Dur PO BID [facility] Sodium Chloride 1 syr 08/13/17 07:02 08/13/17 07:34 Saline Flush IVF 1 syr PRN PRN Administration To flush IV Discontinued Medications Generic Name Dose Route Start Last Admin Trade Name Freq PRN Reason Stop Dose Admin Digoxin 250 mcg 08/13/17 07:03 08/13/17 07:15 Lanoxin IVP 08/13/17 07:04 250 mcg ONCE STA Administration Diltiazem HCl 20 mg 08/13/17 07:18 08/13/17 07:31 Cardizem Inj IVP 08/13/17 07:19 Not Given ONCE STA Diltiazem HCl 25 mg 08/13/17 07:38 08/13/17 07:39 Cardizem Inj IVP 08/13/17 07:39 Not Given ONCE STA Vital Signs: Temp Pulse Resp BP Pulse Ox 08/13/17 07:15 180 H 08/13/17 07:00 97.1 F L 173 H 28 H 149/117 H 98 Departure - Departure Time of Disposition: 06:52 Pt referred to PMD for follow-up: Yes IPMP verified?: No Disposition Discussed With: Patient <NESTOR PORTER - Last Filed: 08/13/17 07:04> <CHARISMA GRAFF - Last Filed: 08/13/17 10:01> - Departure Disposition: ADMITTED INPATIENT Discharge Problem: Atrial fibrillation with RVR Closed head injury Qualifiers: Encounter type: initial encounter Qualified Code(s): S09.90XA - Unspecified injury of head, initial encounter Instructions: Laceration (ED), Staple Care (ED) Condition: Good Additional Instructions: Please call your Family Physician as soon as possible to schedule a follow-up appointment. Allergies/Adverse Reactions: Allergies Iodine and Iodide Containing Produc Adverse Reaction (Verified 08/13/17 07:08) Home Medications: Ambulatory Orders Acetaminophen [Mapap] 325 mg PO Q4HR PRN 03/11/15 Aspirin [Aspirin Chewable] 81 mg PO DAILYWM 03/11/15 Atorvastatin Calcium 40 mg PO BEDTIME 03/11/15 Lisinopril [Zestril] 2.5 mg PO DAILY 03/11/15 Metoprolol Succinate [Toprol Xl] 12.5 mg PO DAILY 03/11/15 Omeprazole [Prilosec] 20 mg PO QDAC 03/11/15 Polyethylene Glycol 3350 [Miralax] 17 gm PO DAILY 03/11/15 Potassium Chloride [K-Dur] 20 meq PO BID 03/11/15 Primidone [Mysoline] 100 mg PO TID 03/11/15 Levetiracetam 1,000 mg PO BID 04/04/18 Magnesium 200 mg PO DAILY 07/11/17 Propafenone HCl [Rythmol Sr] 150 mg PO TID 07/11/17 Bisacodyl 10 mg RC PRN PRN 08/13/17 Calcium Carbonate/Vitamin D3 [Calcium 600 + Vit D 400 Tablet] 1 each PO BID 10/24 Digoxin [Lanoxin] 0.5 tab PO DAILY 08/13/17 Estrogens, Conjugated [Premarin Vaginal Cream] 1 applic VG PRN PRN 08/13/17 Magnesium Hydroxide [Milk of Magnesia] 30 ml PO PRN PRN 08/13/17 Vit C/Vit E/Lutein/Min/[place]-3 [Ocuvite Softgel] 1 each PO DAILY 08/13/17
[2017-08-13] MEDS ORDERED: LANOXIN IVP STA ×2 (07:03→18:46)
[2017-08-13] MEDS ORDERED: CORDARONE ONE (07:13)
[2017-08-13] MEDS ORDERED: CARDIZEM INJ ONE (07:17)
[2017-08-13] MEDS ORDERED: CARDIZEM INJ IVP STA ×2 (07:18→07:38)
[2017-08-13] MEDS: CARDIZEM INJ 125 MG in SODIUM CHLORIDE 100 ML IV SCH (08:10)
--- NOTE | 2017-08-13 09:09 | CT ---
EXAM: CT head without contrast. HISTORY: Initial presentation for head trauma. COMPARISON: 02/20/2016. TECHNIQUE: Multiple axial images of the brain were obtained from the skull base through the vertex w ithout intravenous contrast. Multiplanar reformats were provided. FINDINGS: There is no intracranial hemorrhage or extraaxial collection. Extensive encephalomalacia throughout the right middle cerebral artery territory again noted with ex vacuo dilatation of the rig ht lateral ventricle. The neely-white differentiation is maintained without evidence for acute large vascular territory infarction. There are areas of periventricular and subcortical white matter low a ttenuation. The cortical sulci and cerebral ventricles are symmetrically enlarged. The basal cister ns are well visualized. There is no hydrocephalus, mass effect, or midline shift. The paranasal sin uses and mastoid air cells are clear. The calvarium is intact. Atherosclerotic calcifications are p resent. There is soft tissue swelling and subcutaneous air in the posterior scalp with to skin stapl es present to the left of midline. IMPRESSION: 1. Posterior scalp injury without acute intracranial abnormality. 2. 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 3. Chronic small vessel ischemic changes and atrophy.
--- NOTE | 2017-08-13 09:14 | CT ---
EXAM: CT cervical spine without contrast. HISTORY: Initial presentation for neck trauma due to a fall. COMPARISON: 02/20/2016. TECHNIQUE: Multiple axial images of the cervical spine were obtained without intravenous contrast. Images were reformatted in the sagittal and coronal planes. FINDINGS: There is normal curvature and alignment. Vertebral body and intervertebral disc heights a re maintained. No fracture or subluxation is seen. There is multilevel endplate osteophyte formatio n and facet arthropathy without significant central canal stenosis. The prevertebral soft tissues ar e unremarkable. Soft tissue swelling and skin kimberly noted in the posterior scalp. Atherosclerotic c alcifications noted. Right lobe of the thyroid is not seen. Possible left thyroid nodule. Lung api rita are clear. IMPRESSION: No acute abnormality of the cervical spine.
[2017-08-13 12:52] VITALS: BMI 28.4
[2017-08-13] MEDS: RYTHMOL PO SCH ×2 (14:36→21:34)
[2017-08-13] MEDS: PRIMIDONE PO SCH ×2 (14:38→21:35)
[2017-08-13] MEDS ORDERED: PROPAFENONE HCL 150 MG PO SCH ×2 (15:00→21:00)
[2017-08-13] MEDS ORDERED: LEVETIRACETAM 1000 MG PO SCH (21:00)
[2017-08-13] MEDS ORDERED: NON-FORMULARY MEDICATION (Atorvastatin Calcium [Atorvastatin Calcium] 40 MG) PO SCH (21:00)
[2017-08-13] MEDS: CALCIUM 500 + VIT D 200 MG TABLET PO SCH (21:34)
[2017-08-13] MEDS: KEPPRA PO SCH (21:34)
[2017-08-13] MEDS: LIPITOR PO SCH (21:35)
[2017-08-13] MEDS: K-DUR PO SCH (21:35)
[2017-08-14] MEDS: RYTHMOL PO SCH ×3 (05:30→21:18)
[2017-08-14] MEDS: PRILOSEC PO SCH (05:30)
[2017-08-14] MEDS ORDERED: CARDIZEM INJ ONE (05:39)
[2017-08-14] MEDS: CARDIZEM INJ 125 MG in SODIUM CHLORIDE 100 ML IV SCH ×2 (05:44→22:54)
[2017-08-14] MEDS ORDERED: NON-FORMULARY MEDICATION (Lisinopril [Zestril] 2.5 MG) PO SCH (09:00)
[2017-08-14] MEDS ORDERED: MAGNESIUM 200 MG PO SCH (09:00)
[2017-08-14] MEDS: ASPIRIN CHEWABLE PO SCH (10:31)
[2017-08-14] MEDS: CALCIUM 500 + VIT D 200 MG TABLET PO SCH ×2 (10:32→21:18)
[2017-08-14] MEDS: K-DUR PO SCH ×2 (10:32→21:18)
[2017-08-14] MEDS: KEPPRA PO SCH ×2 (10:33→21:18)
[2017-08-14] MEDS: LANOXIN PO SCH (10:36)
[2017-08-14] MEDS: MAG-OX PO SCH (10:38)
[2017-08-14] MEDS: PRIMIDONE PO SCH ×3 (10:39→21:18)
[2017-08-14] MEDS: TOPROL XL PO SCH (10:39)
[2017-08-14] MEDS: ZESTRIL PO SCH (10:54)
--- NOTE | 2017-08-14 11:12 | RS.PTINEVL ---
Subjective - Patient information Date of Evaluation: 08/14/17 Date of Arrival on Unit: 08/13/17 Admitted From:: Home ([facility]) Diagnosis: afib with RVR, s/p fall with scalp laceration. Usual Living Arrangement: [facility] Home Environment: Level/No stairs Medical History: Hypertension, CVA/TIA, Diabetes Medical History Comments:: hypothyroid, depression, anxiety, seizure LATEX ALLERGY?: No Surgical History: Hysterectomy Medications: see chart Subjective Information/ Patient Comments:: pt states that she is ready to get up and moving. - Level of function Prior to this admission, the patient could do the following:: Independent Selfcare, Independent ADL's, Independent Ambulation Current Level of Function: Partially Dependent Current Equipment Used at Home: rollator rwx Pain Assessement - Location head Description: Acute Intensity: 2 Pain Alleviating Factors: Medication Effects of Pain: pt c/o soreness at area of laceration Interventions - Objective Patient Orientation: Person, Place, Time Current Interventions: IV's, Telemetry Observation: pt with laceration with kimberly to back of head Range of Motion - ROM Right Upper Extremity AROM: WFL's Left Upper Extremity AROM: Moderate limitation (L shld flex/abd limited due to previous CVA) Right Lower Extremity AROM: WFL's Left Lower Extremity AROM: WFL's Muscle Strength - Muscle Strength Right Upper Extremity Strength: Mild Weakness (shld flex 4-/5, elbow flex/ext 4/ 5) Left Upper Extremity Strength: Severe Weakness (shld flex 3-/5, elbow flex/ext 4 -/5) Right Lower Extremity Strength: Mild Weakness (hip flex 4-/5, knee flex/ext 4/5 , ankle DF/PF 4/5) Left Lower Extremity Strength: Mild Weakness (hip flex 3+/5, knee flex/ext 4-/5 , ankle DF/PF 4-/5) Sensation - Sensation Right Upper Extremity Sensation: Intact/Normal Left Upper Extremity Sensation: Intact/Normal Right Lower Extremity Sensation: Intact/Normal Left Lower Extremity Sensation: Intact/Normal Palpation Palpation Findings: None/Normal Balance - Sitting Balance and Reactions Static Sitting Balance: Fair Dynamic Sitting Balance: Poor Sitting Equilibrium Reactions: Delayed Left, Delayed Right Sitting Protective Reactions: Delayed Left, Delayed Right - Standing Balance and Reactions Static Standing Balance: Poor Dynamic Standing Balance: Poor Standing Equilibrium Reactions: Delayed Left, Delayed Right Standing Protective Reactions: Delayed Left, Delayed Right - Comments Balance Assessment Comments: pt leans to R occasionally loses balance requires min assist to maintain balance. Functional Mobility - Bed Mobility Rolling R/L: Mod Assist Supine to Sit: Mod Assist - Transfers Sit to Stand: Min Assist, 2 person assist Stand to Sit: Min Assist - Safety Awareness Safety Awareness: Fair KELECHI INDEX SCORE: n/a Ambulation - Ambulation Assistive Device Used: Rolling Walker Orthotic/Prosthetic Device: No Distance: 110ft Assistance needed with Ambulation: Min Assist, 2 person assist Gait Deviations: Narrow Based gait, Ataxic gait, Forward posture, Deviates from path Ambulation Comments: pt amb leans to R and veers to R. Factors Affecting Ambulation: Decreased Balance, Weakness, Decreased ROM, Decreased Safety, Limited Endurance Treatment time - Time with patient Total treatment time: 27 Patient Education - Education Patient Education: Activity Modification, Education of Plan of Care Teaching Recipient: Patient Teaching Methods: Discussion (discussion with patient regarding POC as well as case management regarding PT POC) Assessment - Assessment Problem List:: Decreased level of function, Requires training/education, Decreased safety/Risk of falls, Weakness, Pain limits previous level of function Rehab Potential: Good Further Therapy Indicated?: Yes Evaluation Complexity: HISTORY: High (fall, DM, HTN, CVA), EXAM OF BODY SYSTEMS : Medium (strength, posture, balance gait), CLINICAL PRESENTATION: Medium ( evolving), CLINICAL DECISION MAKING: Medium Short Term Goals GOAL #1: pt demonstrate rolling and scooting up in bed independently Goal to be met by: 08/17/17 GOAL #2: pt transfer sup to/from sit to/from stand CGA Goal to be met by: 08/17/17 GOAL #3: pt amb 150ft with rwx with no LOB with CGA x 1 Goal to be met by: 08/17/17 GOAL #4: pt with improved strength LLE 4-/5 to 4/5, RLE 4 to 4+/5 Goal to be met by: 08/17/17 Fashion Design Professor Goals GOAL #1: pt transfer sup to/from sit to/from stand SBA to independently Goal to be met by: 08/20/17 GOAL #2: pt amb 200ft with rwx with SBA x 1 with no LOB Goal to be met by: 08/20/17 GOAL #3: pt with improved dyn stand balance as noted by no LOB with gait Goal to be met by: 08/19/17 Plan Plan of Care: Therapeutic EX, Therapeutic Activity Other:: gait training Frequency of Treatment: 1-2 X day, as tolerated Duration of Treatment: 6 days Anticipated Discharge Destination: Home Treatment Diagnosis (ICD 10 Codes): R26.0 ataxic gait. R26.81 balance impaired. Has the Physician been added for Co-signature?: Yes
[2017-08-14] MEDS: LIPITOR PO SCH (21:18)
[2017-08-15] MEDS: RYTHMOL PO SCH ×3 (05:44→21:16)
[2017-08-15] MEDS: PRILOSEC PO SCH (05:44)
[2017-08-15] MEDS: CALCIUM 500 + VIT D 200 MG TABLET PO SCH ×2 (09:20→21:17)
[2017-08-15] MEDS: ASPIRIN CHEWABLE PO SCH (09:20)
[2017-08-15] MEDS: K-DUR PO SCH ×2 (09:20→21:17)
[2017-08-15] MEDS: TOPROL XL PO SCH (09:20)
[2017-08-15] MEDS: KEPPRA PO SCH ×2 (09:20→21:17)
[2017-08-15] MEDS: ZESTRIL PO SCH (09:21)
[2017-08-15] MEDS: MAG-OX PO SCH (09:22)
[2017-08-15] MEDS: PRIMIDONE PO SCH ×3 (09:22→21:16)
[2017-08-15] MEDS: LANOXIN PO SCH (09:23)
--- NOTE | 2017-08-15 11:06 | PN ---
DATE OF SERVICE: 08/14/17 CHIEF COMPLAINT: She fell, hit her head and was found to have an arrhythmia. BRIEF HISTORY OF PRESENT ILLNESS: She has poor gait with multiple medical problems. She has had a previous stroke with left hemiplegia combined with some degree of degenerative joint disease making her a fall risk. Recently seen in the office. She was actually sent to therapy and was doing better. She got up the morning of admission and went to the kitchen; she had no loss of consciousness but fell striking the back of her head with a laceration that was induced. She was brought to the ER where she required stapling of the laceration. CT of the head showed nothing acute as well as her neck. She was found to be in a rapid ventricular response to probably atrial fibrillation. She has a history of atrial fibrillation and her Dig level was found to be low. She was given a bolus of Dig, placed on Cardizem drip and the bolus of Dig was repeated last night. Her rate has slowly improved. The Cardizem has been weaned. Her Dig level this morning was 2. She has actually had therapy and did some walking today. She has a minor posterior headache. PHYSICAL EXAMINATION: V/S: Temperature 97.8, pulse 57, respirations 20, BP 154/71. GENERAL: No obvious distress. HEENT: Pupils equal. Extraocular movements intact. INTEGUMENT: Intact posterior occipital laceration with kimberly; no significant fluctuance. NECK: Nontender and supple. CHEST: Clear. CARDIOVASCULAR: Grade I/ systolic murmur. Regular and yasemin. No peripheral edema. GI: Obese, nontender without organomegaly. MUSCULOSKELETAL: Right upper extremity tremors, resting and intention. Left weakness, diffuse. LABS/X-RAYS: White count 10.77, hemoglobin 15.5, platelets 231. Chemistry is completely unremarkable. Note blood sugar at 115 and potassium 4.4. REASON FOR ADMISSION: Head contusion Scalp laceration Tachycardia Rapid atrial fibrillation Gait decline, acute and fall acute Chronic illnesses of significance: Chronic gait issues Chronic atrial fibrillation History of CVA with late effects Dig therapy - subtherapeutic PLAN: 1. Another night of observation of the situations and rechecking of her labs in the morning. More therapy tomorrow; trying to decide if she is well enough to consider going home with assisted living or whether she will need [facility]. 2. Will talk to family tomorrow; as they are not here tonight. 3. Laboratories as noted. 4. No further imaging at this point. 5. She remains a DNR. DEYSI
--- NOTE | 2017-08-15 14:35 | RS.OTINEVL ---
Subjective - Patient information Date of Evaluation: 08/15/17 Date of Arrival on Unit: 08/13/17 Admitted From:: Emergency Dept Usual Living Arrangement: Personal Care Facility Living Arrangement Comments: Pt lives at [facility] Home Environment: Apartment Medical History: Hypertension, CVA/TIA Medical History Comments:: Atrial Fib, Thyroidectomy, endocrine, hysterectomy, CVA 2014, Cardiac disorders, Abdominal surgery, depression, OA, Tachycardia LATEX ALLERGY?: No Surgical History Comments:: gall bladder removed, abd. surgery. Subjective Information/ Patient Comments:: "Hold my cup for me. I will spill it everywhere." - Level of function Prior to this admission, the patient could do the following:: Independent Selfcare, Independent ADL's, Independent Ambulation Abilities prior to this admission: Pt living at [facility] and was able to go to the restroom herself. She has paid CG to help her with a bath. Pt requires assist for self feeding if she does not have finger foods. Current Equipment Used at Home: rollator rwx Pain Assessment - Pain Pain Score: 0 Interventions - Objective Patient Orientation: Person, Place, Situation Current Interventions: IV's, Oxygen, Telemetry Observation: Pt's head leans to the right. Pt walks very slow with a rollator walker. Interventions - ROM Right Upper Extremity AROM: WFL's Left Upper Extremity AROM: Moderate limitation - Strength Right Upper Extremity Strength: Normal Left Upper Extremity Strength: Severe Weakness - Sensation Right Upper Extremity Sensation: Intact/Normal Left Upper Extremity Sensation: Impaired Balance - Sitting Balance Dynamic Sitting Balance: Fair - Standing Balance Static Standing Balance: Poor Dynamic Standing Balance: Poor ADL Skills - Self Feeding Self Feeding: Min Assist - Grooming Grooming: Min Assist - Bathing Bathing UE: CGA Bathing LE: Mod Assist - Dressing Dressing UE: Min Assist Dressing LE: Min Assist - Toilet Management Toileting Management: CGA Functional Mobility - Bed Mobility Rolling R/L: Independent Scooting: CGA Supine to Sit: CGA Sit to Supine: CGA - Transfers Sit to Stand: CGA Stand to Sit: CGA Stand Pivot Transfers: CGA - Ambulation Weight Bearing Status: FWB Assistive Device Used: Rollator Orthotic/Prosthetic Device: No Assistance needed with Ambulation: CGA - Safety Awareness Safety Awareness: Fair KELECHI INDEX SCORE: . Additional Treatment Performed - Additional units charged ADL: 1 OT 1 to 1 Activity: 1 - Time with patient Total treatment time: 51 Activities Patient Interests:: Watching Television, Listening to Music Patient Education Patient Education: Home Safety, Education of Plan of Care Teaching Recipient: Patient Teaching Methods: Discussion Assessment Rehab Potential: Good Further Therapy Indicated?: Yes Evaluation Complexity: HISTORY: Medium, EXAM OF BODY SYSTEMS: Medium, CLINICAL DECISION MAKING: Medium Short Term Goals - Goals GOAL 1: Pt to increase her (I) of drinking from a cup with a lid Goal to be met by: 08/22/17 GOAL 2: Pt to increase LUE reaching strength to 4-/5 Goal to be met by: 08/22/17 GOAL 3: Pt to increase dyn. std. balance to Fair+ Goal to be met by: 08/22/17 Deposit Refund Clerk Goals GOAL 1: Pt to increase (I) of self care to CGA. Goal to be met by: 08/24/17 GOAL 2: Pt to increase strength of BUE to 4/5. Goal to be met by: 08/24/17 GOAL 3: Pt to increase dyn. std. balance to Fair+ Goal to be met by: 08/24/17 Plan Plan of Care: Therapeutic EX, Neuromuscular Re-Educ, Therapeutic Activity, Self- Care/Home Management Frequency of Treatment: 1-2 X day, as tolerated Duration of Treatment: 2 Weeks Anticipated Discharge Destination: Assisted Living Facility Treatment Diagnosis (ICD 10 Codes): M62.81- muscle weakness, Z74.1 Need for assistance for personal care. Has the Physician been added for Co-signature?: Yes
[2017-08-15] MEDS: LIPITOR PO SCH (21:17)
[2017-08-16] MEDS: RYTHMOL PO SCH ×2 (04:43→13:38)
[2017-08-16] MEDS: PRILOSEC PO SCH (05:41)
[2017-08-16] MEDS: CALCIUM 500 + VIT D 200 MG TABLET PO SCH (08:48)
[2017-08-16] MEDS: ASPIRIN CHEWABLE PO SCH (08:48)
[2017-08-16] MEDS: K-DUR PO SCH (08:49)
[2017-08-16] MEDS: KEPPRA PO SCH (08:49)
[2017-08-16] MEDS: MAG-OX PO SCH (08:50)
[2017-08-16] MEDS: TOPROL XL PO SCH (08:52)
[2017-08-16] MEDS: ZESTRIL PO SCH (08:53)
[2017-08-16] MEDS: PRIMIDONE PO SCH ×2 (08:53→15:10)
[2017-08-16] MEDS: LANOXIN PO SCH (08:55)
[2017-08-16 10:36] VITALS: BP 134/63; TEMP 98.4
--- NOTE | 2017-08-22 09:18 | PN ---
DATE OF SERVICE: 08/15/17 CHIEF COMPLAINT: "I have fallen and hit my head." BRIEF HISTORY OF PRESENT ILLNESS: She has poor baseline gait with multiple medical problems. She had a previous stroke with left hemiplegia combined with some degree of degenerative joint disease making her an extreme fall risk. She was recently seen in the office. She was actually sent to therapy because she had recently fallen. She was doing better. The morning of admission she got up to go to the kitchen and rather unpredictably fell. She does not think that there is any loss of consciousness and with a history of seizures, she doesn't think there was any seizure. She didn't think she was lethargic afterwards. The people at [facility] came to her assistance. She was brought to the ER where she had posterior occipital laceration that was stapled. CT of her head showed nothing acute as well as her neck. She was found to be in rapid ventricular response with atrial fib; something she has had before. Her Dig level was low and she was given a bolus of Dig and placed on Cardizem drip. For the first 24 hours we maintained the drip, gave additional couple doses of IV Dig and her heart rate improved. She was able to be weaned off the Cardizem. Her blood pressure runs on the lower side, unfortunately tolerated without orthostasis. She has continued to have a minor posterior headache. Therapy started in earnest today. She is walking some but is perceived by the therapy department as being somewhat of a continued fall risk. She wants to go back to [facility]. Her family thinks she needs to go through rehab. PHYSICAL EXAMINATION: V/S: Temperature 97.8, pulse 60, respirations 20, BP 135/61. GENERAL: Pleasant, no obvious distress. INTEGUMENT: Turgor was adequate to slightly pale. Mucous membranes are moist. No ankle edema. HEENT: The laceration is intact. NECK: Nontender. CHEST: Clear. CARDIOVASCULAR: Hakeem with Grade I/ systolic murmur. No peripheral edema. GI: No organomegaly, mass or tenderness. MUSCULOSKELETAL: Left facial weakness, left hemiplegia. Day Guard diminished one on the left upper extremity; same on the lower. Compares to two on the right. Has intention tremor of the right upper extremity. LABS/X-RAYS: White count 7.89, hemoglobin 14, platelets 184; all of these stable. Chemistries show no significant problems. ASSESSMENT: 1. HEAD CONTUSION 2. SCALP LACERATION 3. TACHYCARDIA 4. RAPID ATRIAL FIB 5. GAIT DECLINE, ACUTE ON CHRONIC 6. ACUTE FALL CHRONIC ILLNESS OF SIGNIFICANCE: 1. CHRONIC GAIT ISSUES 2. CHRONIC ATRIAL FIBRILLATION 3. HISTORY OF CVA WITH MULTIPLE LATE EFFECTS AND SUBTHERAPEUTIC DIG THERAPY - IMPROVED PLAN: 1. Will see how therapy feels about tomorrow and based on that how the patient and family feel about rehab versus going back to [facility]. NAYANAD
== END 2017-08-16 16:15 | DRG 605 ==
LOC: ED 06:40 → SCU 11:06
PROVIDERS: ADMIT Family Medicine; ATTEND Family Medicine
PROC: 0HQ0XZZ Repair Scalp Skin, External Approach (ICD-10-PCS; principal; 2017-08-13)
DX: S01.01XA Laceration without foreign body of scalp, initial encounter (principal); I50.30 Unspecified diastolic (congestive) heart failure; I69.954 Hemiplegia and hemiparesis following unspecified cerebrovascular disease affecting left non-dominant side; I48.2 Chronic atrial fibrillation; M19.90 Unspecified osteoarthritis, unspecified site; R26.2 Difficulty in walking, not elsewhere classified; R00.0 Tachycardia, unspecified; I10 Essential (primary) hypertension; E11.9 Type 2 diabetes mellitus without complications; I69.928 Other speech and language deficits following unspecified cerebrovascular disease; G40.909 Epilepsy, unspecified, not intractable, without status epilepticus; W19.XXXA Unspecified fall, initial encounter; Y92.129 Unspecified place in nursing home as the place of occurrence of the external cause; Z79.899 Other long term (current) drug therapy
CPT/HCPCS: 36415; 80048; 80053; 80162; 81001; 82550; 82553; 82962; 84439; 84443; 84484; 85025; 93005; 93010; 96365; 96375; 99284

== ENCOUNTER 2017-09-09 08:14 | Outpatient (CLI) | payer OTHER | END 2017-09-09 08:26 | disposition short-term general hospital (02) | LOC: AMBL 08:14 | PROVIDERS: ATTEND Emergency Medicine | DX: R40.4 Transient alteration of awareness (principal); R29.810 Facial weakness; Z86.73 Personal history of transient ischemic attack (TIA), and cerebral infarction without residual deficits ==